=== PATIENT | female | born 1985 | race Caucasian/White ===

== ENCOUNTER 2018-05-10 13:23 | Emergency (ER) | payer OTHER ==
[~2018-05-10] VITALS: Ht 167.6 cm; Wt 72.6 kg
[2018-05-10] MEDS ORDERED: PREDNISONE 10 M10 MG PO (14:40)
[2018-05-10] MEDS ORDERED: ROBAXIN 750 MG750 M1 PO (14:40)
[2018-05-10 14:53] VITALS: BP 147/94
== END 2018-05-10 14:54 | disposition home or self-care (01) ==
LOC: M.ERS 13:23
DX: S16.1XXA Strain of muscle, fascia and tendon at neck level, initial encounter (principal); S29.012A Strain of muscle and tendon of back wall of thorax, initial encounter; X58.XXXA Exposure to other specified factors, initial encounter; Y93.89 Activity, other specified; Y92.89 Other specified places as the place of occurrence of the external cause; Y99.8 Other external cause status

== ENCOUNTER → 2020-01-22 | Outpatient (CLI) | payer OTHER ==
[~2020-01-22] MED LIST: PREDNISONE 10 M10 MG PO; ROBAXIN 750 MG750 M1 PO
== END ==
LOC: M.ULTRA 09:57
PROVIDERS: ATTEND Nurse Practitioner Family
DX: N63.10 Unspecified lump in the right breast, unspecified quadrant (principal); N64.4 Mastodynia